=== PATIENT | female | born 1990 | race Two or more races ===

== ENCOUNTER 2018-11-14 20:59 | Emergency (ER) | payer SELFPAY ==
[2018-11-14] MEDS ORDERED: Ketorolac 30 MG/ML SDV IVPUSH ONE (21:20)
[2018-11-14] MEDS ORDERED: Sodium Chloride 0.9% 1,000 ML IV ONE (21:20)
--- NOTE | 2018-11-14 21:27 | EDM.PDOC ---
<Teddy Lauren - Last Filed: 11/14/18 23:14> ED HPI GENERAL MEDICAL PROBLEM - General Chief Complaint: Abdominal Pain Stated Complaint: LOWER BACK/KIDNEY PAIN Time Seen by Provider: 11/14/18 21:10 - Related Data Allergies Allergy/AdvReac Type Severity Reaction Status Date / Time No Known Allergies Allergy Verified 11/14/18 21:12 Home Meds: Home Meds . [No Known Home Meds] 11/14/18 [History] ED ROS GENERAL - Review of Systems Review Of Systems: ROS reveals no pertinent complaints other than HPI. ED EXAM, RENAL/ - Physical Exam Exam: See Below (See dictation) Course - Vital Signs Text/Narrative:: Patient's emergency course unremarkable CT of her abdomen and pelvis and other diagnostics were discussed with patient patient be discharged home with diagnosis of #1 back pain #2 medical screening exam Last Recorded V/S: Last Vital Signs Temp 97 F 11/14/18 23:26 Pulse 85 11/14/18 23:26 Resp 16 11/14/18 23:26 BP 117/73 11/14/18 23:26 Pulse Ox 99 11/14/18 23:26 - Orders/Labs/Meds Labs: Laboratory Tests 11/14/18 11/14/18 11/14/18 Range/Units 20:15 20:15 21:28 WBC 13.60 H (4.0-11.0) K/uL RBC 4.82 (4.30-5.90) M/uL Hgb 14.3 (12.0-16.0) g/dL Hct 41.6 (36.0-46.0) % MCV 86.3 (80.0-98.0) fL MCH 29.7 (27.0-32.0) pg MCHC 34.4 (31.0-37.0) g/dL RDW Std Deviation 41.6 (28.0-62.0) fl RDW Coeff of Leandro 13 (11.0-15.0) % Plt Count 282 (150-400) K/uL MPV 10.20 (7.40-12.00) fL Neut % (Auto) 64.1 (48.0-80.0) % Lymph % (Auto) 26.0 (16.0-40.0) % Mitchell % (Auto) 6.1 (0.0-15.0) % Eos % (Auto) 3.7 (0.0-7.0) % Baso % (Auto) 0.1 (0.0-1.5) % Neut # (Auto) 8.7 H (1.4-5.7) K/uL Lymph # (Auto) 3.5 H (0.6-2.4) K/uL Mitchell # (Auto) 0.8 (0.0-0.8) K/uL Eos # (Auto) 0.5 (0.0-0.7) K/uL Baso # (Auto) 0.0 (0.0-0.1) K/uL Nucleated RBC % 0.0 /100WBC Nucleated RBCs # 0 K/uL Sodium (136-145) mmol/L Potassium (3.5-5.1) mmol/L Chloride (98-107) mmol/L Carbon Dioxide (21.0-32.0) mmol/L BUN (7.0-18.0) mg/dL Creatinine (0.6-1.0) mg/dL Est Cr Clr Drug Dosing Estimated GFR (MDRD) ml/min Glucose (74-106) mg/dL Calcium (8.5-10.1) mg/dL Total Bilirubin (0.2-1.0) mg/dL AST (15-37) IU/L ALT (14-63) IU/L Alkaline Phosphatase (46-116) U/L Total Protein (6.4-8.2) g/dL Albumin (3.4-5.0) g/dL Globulin (2.6-4.0) g/dL Albumin/Globulin Ratio (0.9-1.6) Urine Color YELLOW Urine Appearance SLT CLOUDY Urine pH 5.5 (5.0-8.0) Ur Specific [place] <= 1.005 (1.001-1.035) Urine Protein NEGATIVE (NEGATIVE) mg/dL Urine Glucose (UA) NEGATIVE (NEGATIVE) mg/dL Urine Ketones NEGATIVE (NEGATIVE) mg/dL Urine Occult Blood NEGATIVE (NEGATIVE) Urine Nitrite NEGATIVE (NEGATIVE) Urine Bilirubin NEGATIVE (NEGATIVE) Urine Urobilinogen 0.2 (<2.0) EU/dL Ur Leukocyte Esterase TRACE H (NEGATIVE) Urine RBC 0-1 (0-2/HPF) Urine WBC 2-5 (0-5/HPF) Ur Epithelial Cells FEW (NONE-FEW) Urine Bacteria RARE (NEGATIVE) Urine HCG, Qual NEGATIVE (NEGATIVE) 11/14/18 Range/Units 21:28 WBC (4.0-11.0) K/uL RBC (4.30-5.90) M/uL Hgb (12.0-16.0) g/dL Hct (36.0-46.0) % MCV (80.0-98.0) fL MCH (27.0-32.0) pg MCHC (31.0-37.0) g/dL RDW Std Deviation (28.0-62.0) fl RDW Coeff of Leandro (11.0-15.0) % Plt Count (150-400) K/uL MPV (7.40-12.00) fL Neut % (Auto) (48.0-80.0) % Lymph % (Auto) (16.0-40.0) % Mitchell % (Auto) (0.0-15.0) % Eos % (Auto) (0.0-7.0) % Baso % (Auto) (0.0-1.5) % Neut # (Auto) (1.4-5.7) K/uL Lymph # (Auto) (0.6-2.4) K/uL Mitchell # (Auto) (0.0-0.8) K/uL Eos # (Auto) (0.0-0.7) K/uL Baso # (Auto) (0.0-0.1) K/uL Nucleated RBC % /100WBC Nucleated RBCs # K/uL Sodium 140 (136-145) mmol/L Potassium 3.8 (3.5-5.1) mmol/L Chloride 104 (98-107) mmol/L Carbon Dioxide 25.9 (21.0-32.0) mmol/L BUN 11 (7.0-18.0) mg/dL Creatinine 0.8 (0.6-1.0) mg/dL Est Cr Clr Drug Dosing TNP Estimated GFR (MDRD) > 60.0 ml/min Glucose 90 (74-106) mg/dL Calcium 9.1 (8.5-10.1) mg/dL Total Bilirubin 0.3 (0.2-1.0) mg/dL AST 12 L (15-37) IU/L ALT 21 (14-63) IU/L Alkaline Phosphatase 61 (46-116) U/L Total Protein 7.3 (6.4-8.2) g/dL Albumin 3.5 (3.4-5.0) g/dL Globulin 3.8 (2.6-4.0) g/dL Albumin/Globulin Ratio 0.9 (0.9-1.6) Urine Color Urine Appearance Urine pH (5.0-8.0) Ur Specific [place] (1.001-1.035) Urine Protein (NEGATIVE) mg/dL Urine Glucose (UA) (NEGATIVE) mg/dL Urine Ketones (NEGATIVE) mg/dL Urine Occult Blood (NEGATIVE) Urine Nitrite (NEGATIVE) Urine Bilirubin (NEGATIVE) Urine Urobilinogen (<2.0) EU/dL Ur Leukocyte Esterase (NEGATIVE) Urine RBC (0-2/HPF) Urine WBC (0-5/HPF) Ur Epithelial Cells (NONE-FEW) Urine Bacteria (NEGATIVE) Urine HCG, Qual (NEGATIVE) Meds: Medications Discontinued Medications Generic Name Dose Route Start Last Admin Trade Name Freq PRN Reason Stop Dose Admin Sodium Chloride 1,000 mls @ 999 mls/hr 11/14/18 21:20 11/14/18 21:30 Normal Saline IV 11/14/18 22:20 999 mls/hr STAT ONE Administration Ketorolac Tromethamine 30 mg 11/14/18 21:20 11/14/18 21:30 Toradol IVPUSH 11/14/18 21:21 30 mg ONETIME ONE Administration Departure - Departure Time of Disposition: 23:15 Disposition: Home, Self-Care 01 Condition: Good Clinical Impression: Back pain, Encounter for medical screening examination - Discharge Information Instructions: Acute Back Pain, Adult Referrals: PCP,None [Primary Care Provider] - Forms: ED Department Discharge Additional Instructions: The following information is given to patients seen in the emergency department who are being discharged to home. This information is to outline your options for follow-up care. We provide all patients seen in our emergency department with a follow-up referral. The need for follow-up, as well as the timing and circumstances, are variable depending upon the specifics of your emergency department visit. If you don't have a primary care physician on staff, we will provide you with a referral. We always advise you to contact your personal physician following an emergency department visit to inform them of the circumstance of the visit and for follow-up with them and/or the need for any referrals to a consulting specialist. The emergency department will also refer you to a specialist when appropriate. This referral assures that you have the opportunity for followup care with a specialist. All of these measure are taken in an effort to provide you with optimal care, which includes your followup. Under all circumstances we always encourage you to contact your private physician who remains a resource for coordinating your care. When calling for followup care, please make the office aware that this follow-up is from your recent emergency room visit. If for any reason you are refused follow-up, please contact the [facility] emergency department at and asked to speak to the emergency department charge nurse. Motrin/Tylenol as directed follow-up primary medical doctor as needed as discussed return as needed as discussed <Jayleen Baca E - Last Filed: 11/18/18 09:00> ED HPI GENERAL MEDICAL PROBLEM - General Source of Information: Reports: Patient History Limitations: Reports: No Limitations - History of Present Illness INITIAL COMMENTS - FREE TEXT/NARRATIVE: HISTORY AND PHYSICAL: History of present illness: Patient is a 28-year-old female who presents to the emergency room with complaints of right flank pain. Right flank pain radiates to the right mid abdomen. Patient denies any fever, chills, headache, change in vision, syncope or near syncope. Denies any chest pain, back pain, shortness of breath or cough. Denies any nausea, vomiting, diarrhea, constipation or dysuria. Has not noted any blood in urine or stool. She states that there is a chance of . Patient has been eating and drinking appropriately. Review of systems: As per history of present illness and below otherwise all systems reviewed and negative. Past medical history: As per history of present illness and as reviewed below otherwise noncontributory. Surgical history: As per history of present illness and as reviewed below otherwise noncontributory. Social history: See social history for further information Family history: As per history of present illness and as reviewed below otherwise noncontributory. Physical exam: General: Well-developed and well-nourished 28-year-old female. Alert and oriented. Nontoxic appearing and in no acute distress. HEENT: Atraumatic, normocephalic, pupils equal and reactive bilaterally, negative for conjunctival pallor or scleral icterus, mucous membranes moist, trachea midline. No drooling or trismus noted. No meningeal signs. No hot potato voice noted. Lungs: Clear to auscultation, breath sounds equal bilaterally, chest nontender. Heart: S1S2, regular rate and rhythm without overt murmur Abdomen: Soft, nondistended, Mild right mid/abd tenderness. Negative for masses. Right sided costovertebral tenderness. Pelvis: Stable nontender. Skin: Intact, warm, dry. No lesions or rashes noted. Extremities: Atraumatic, moves all extremities per self without difficulty or deficits, negative for cords or calf pain. Neurovascular unremarkable. Neuro: Awake, alert, oriented. Cranial nerves II through XII unremarkable. Cerebellum unremarkable. Motor and sensory unremarkable throughout. Exam nonfocal. Notes: Dr Lauren to follow patient's labs and CT report. Diagnostics: CBC, CMP, UA, CT abdomen and pelvis Therapeutics: IV fluid, Zofran Impression: Flank Pain, Right Definitive disposition and diagnosis as appropriate pending reevaluation and review of above. 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: Musculoskeletal History: Reports: None Neurological History: Reports: None Psychiatric History: Reports: None Endocrine/Metabolic History: Reports: None Hematologic History: Reports: None Immunologic History: Reports: None Oncologic (Cancer) History: Reports: None Dermatologic History: Reports: None - Infectious Disease History Infectious Disease History: Reports: None - Past Surgical History Head Surgeries/Procedures: Reports: None Musculoskeletal Surgical History: Reports: None Social & Family History - Family History Family Medical History: Noncontributory - Tobacco Use Smoking Status *Q: Never Smoker - Caffeine Use Caffeine Use: Reports: Coffee - Recreational Drug Use Recreational Drug Use: No Course - Orders/Labs/Meds Labs: Laboratory Tests 11/14/18 11/14/18 11/14/18 Range/Units 20:15 20:15 21:28 WBC 13.60 H (4.0-11.0) K/uL RBC 4.82 (4.30-5.90) M/uL Hgb 14.3 (12.0-16.0) g/dL Hct 41.6 (36.0-46.0) % MCV 86.3 (80.0-98.0) fL MCH 29.7 (27.0-32.0) pg MCHC 34.4 (31.0-37.0) g/dL RDW Std Deviation 41.6 (28.0-62.0) fl RDW Coeff of Leandro 13 (11.0-15.0) % Plt Count 282 (150-400) K/uL MPV 10.20 (7.40-12.00) fL Neut % (Auto) 64.1 (48.0-80.0) % Lymph % (Auto) 26.0 (16.0-40.0) % Mitchell % (Auto) 6.1 (0.0-15.0) % Eos % (Auto) 3.7 (0.0-7.0) % Baso % (Auto) 0.1 (0.0-1.5) % Neut # (Auto) 8.7 H (1.4-5.7) K/uL Lymph # (Auto) 3.5 H (0.6-2.4) K/uL Mitchell # (Auto) 0.8 (0.0-0.8) K/uL Eos # (Auto) 0.5 (0.0-0.7) K/uL Baso # (Auto) 0.0 (0.0-0.1) K/uL Nucleated RBC % 0.0 /100WBC Nucleated RBCs # 0 K/uL Sodium (136-145) mmol/L Potassium (3.5-5.1) mmol/L Chloride (98-107) mmol/L Carbon Dioxide (21.0-32.0) mmol/L BUN (7.0-18.0) mg/dL Creatinine (0.6-1.0) mg/dL Est Cr Clr Drug Dosing Estimated GFR (MDRD) ml/min Glucose (74-106) mg/dL Calcium (8.5-10.1) mg/dL Total Bilirubin (0.2-1.0) mg/dL AST (15-37) IU/L ALT (14-63) IU/L Alkaline Phosphatase (46-116) U/L Total Protein (6.4-8.2) g/dL Albumin (3.4-5.0) g/dL Globulin (2.6-4.0) g/dL Albumin/Globulin Ratio (0.9-1.6) Urine Color YELLOW Urine Appearance SLT CLOUDY Urine pH 5.5 (5.0-8.0) Ur Specific [place] <= 1.005 (1.001-1.035) Urine Protein NEGATIVE (NEGATIVE) mg/dL Urine Glucose (UA) NEGATIVE (NEGATIVE) mg/dL Urine Ketones NEGATIVE (NEGATIVE) mg/dL Urine Occult Blood NEGATIVE (NEGATIVE) Urine Nitrite NEGATIVE (NEGATIVE) Urine Bilirubin NEGATIVE (NEGATIVE) Urine Urobilinogen 0.2 (<2.0) EU/dL Ur Leukocyte Esterase TRACE H (NEGATIVE) Urine RBC 0-1 (0-2/HPF) Urine WBC 2-5 (0-5/HPF) Ur Epithelial Cells FEW (NONE-FEW) Urine Bacteria RARE (NEGATIVE) Urine HCG, Qual NEGATIVE (NEGATIVE) 11/14/18 Range/Units 21:28 WBC (4.0-11.0) K/uL RBC (4.30-5.90) M/uL Hgb (12.0-16.0) g/dL Hct (36.0-46.0) % MCV (80.0-98.0) fL MCH (27.0-32.0) pg MCHC (31.0-37.0) g/dL RDW Std Deviation (28.0-62.0) fl RDW Coeff of Leandro (11.0-15.0) % Plt Count (150-400) K/uL MPV (7.40-12.00) fL Neut % (Auto) (48.0-80.0) % Lymph % (Auto) (16.0-40.0) % Mitchell % (Auto) (0.0-15.0) % Eos % (Auto) (0.0-7.0) % Baso % (Auto) (0.0-1.5) % Neut # (Auto) (1.4-5.7) K/uL Lymph # (Auto) (0.6-2.4) K/uL Mitchell # (Auto) (0.0-0.8) K/uL Eos # (Auto) (0.0-0.7) K/uL Baso # (Auto) (0.0-0.1) K/uL Nucleated RBC % /100WBC Nucleated RBCs # K/uL Sodium 140 (136-145) mmol/L Potassium 3.8 (3.5-5.1) mmol/L Chloride 104 (98-107) mmol/L Carbon Dioxide 25.9 (21.0-32.0) mmol/L BUN 11 (7.0-18.0) mg/dL Creatinine 0.8 (0.6-1.0) mg/dL Est Cr Clr Drug Dosing TNP Estimated GFR (MDRD) > 60.0 ml/min Glucose 90 (74-106) mg/dL Calcium 9.1 (8.5-10.1) mg/dL Total Bilirubin 0.3 (0.2-1.0) mg/dL AST 12 L (15-37) IU/L ALT 21 (14-63) IU/L Alkaline Phosphatase 61 (46-116) U/L Total Protein 7.3 (6.4-8.2) g/dL Albumin 3.5 (3.4-5.0) g/dL Globulin 3.8 (2.6-4.0) g/dL Albumin/Globulin Ratio 0.9 (0.9-1.6) Urine Color Urine Appearance Urine pH (5.0-8.0) Ur Specific [place] (1.001-1.035) Urine Protein (NEGATIVE) mg/dL Urine Glucose (UA) (NEGATIVE) mg/dL Urine Ketones (NEGATIVE) mg/dL Urine Occult Blood (NEGATIVE) Urine Nitrite (NEGATIVE) Urine Bilirubin (NEGATIVE) Urine Urobilinogen (<2.0) EU/dL Ur Leukocyte Esterase (NEGATIVE) Urine RBC (0-2/HPF) Urine WBC (0-5/HPF) Ur Epithelial Cells (NONE-FEW) Urine Bacteria (NEGATIVE) Urine HCG, Qual (NEGATIVE)
[2018-11-14 21:57] LABS: CHLORIDE,CL 104 mmol/L (98-107); SODIUM,NA 140 mmol/L (136-145)
--- NOTE | 2018-11-14 22:58 | CT ---
INDICATION: Bilateral lower quadrant and back pain. TECHNIQUE: CT abdomen and pelvis without contrast. COMPARISON: None. FINDINGS: Lower chest: Unremarkable. Liver: Normal in size and attenuation. No masses. Gallbladder and bile ducts: No stones or inflammation. No biliary dilatation. Pancreas: Unremarkable. No mass or inflammation. Spleen: Normal in size. No masses. Adrenal glands: Normal in size. No nodules. Kidneys: Normal in size. No masses, stones, or hydronephrosis. GI tract: Unremarkable. Normal in caliber. No sign of mass or inflammation. Normal appendix. Vasculature: Unremarkable. Lymph nodes: No lymphadenopathy. Abdominal wall/Omentum/Peritoneum: Unremarkable. No sign of mass or infiltration. No free air or significant free fluid. Pelvis: Unremarkable. No pelvic masses. Bones: Unremarkable for age. IMPRESSION: Unremarkable CT of the abdomen and pelvis. No findings to explain lower quadrant or back pain. Please note that all CT scans at this facility use dose modulation, iterative reconstruction, and/or weight-based dosing when appropriate to reduce radiation dose to as low as reasonably achievable. Dictated by David Parekh MD @ Nov 14 2018 10:50PM Signed by Dr. David Parekh @ Nov 14 2018 10:56PM
== END 2018-11-14 23:26 | disposition home or self-care (01) ==
LOC: MW.ED 20:59
DX: R10.9 Unspecified abdominal pain (principal); M54.5 Low back pain
CPT/HCPCS: 36415; 74150; 80053; 81001; 81025; 85025; 87086; 96361; 96374; 99284; J1885; J7040

== ENCOUNTER 2019-03-13 16:41 | Emergency (ER) | payer SELFPAY ==
[2019-03-13 18:33] LABS: BLOOD UREA NITROGEN,BUN 10 mg/dL (7.0-18.0); CARBON DIOXIDE,CO2 25.7 mmol/L (21.0-32.0); CHLORIDE,CL 100 mmol/L (98-107); GLUCOSE RANDOM 85 mg/dL (74-106); POTASSIUM,K 3.8 mmol/L (3.5-5.1); SODIUM,NA 136 mmol/L (136-145)
--- NOTE | 2019-03-13 19:16 | EDM.PDOC ---
ED HPI GENERAL MEDICAL PROBLEM - General Chief Complaint: BATTER OUT Problem Stated Complaint: PREG AND BLEEDING Time Seen by Provider: 03/13/19 19:16 - History of Present Illness INITIAL COMMENTS - FREE TEXT/NARRATIVE: HPI 28-year-old female who is reportedly 8 weeks presents for evaluation of scant bright red vaginal bleeding that occurred this morning, currently asymptomatic. No pain. Patient denies a history of multiparous gestations or IVF. Patient has an BATTER OUT with prior care, unsure name of OB/ [employer]. M/S/F/SocHx notable for: please see HPI; remainder reviewed with patient and in chart. ROS: Negative constitutional, eye, cardiovascular, pulmonary, GI, , MSK, skin , neurologic, psychiatric, endocrine unless noted in the HPI. Exam HR 85, RR 16, BP 137/89, T 36.4C, SaO2 90% on room air. Gen: pleasant, nontoxic-appearing, resting comfortably. HEENT: NC, AT, PEERL, EOMI. Resp: Clear to auscultation bilaterally, normal work of breathing, no accessory muscle usage. Card: Regular rate and rhythm with no murmurs, rubs, or gallops, extremities warm and well perfused. GI: Non-tender to palpation, no rebound tenderness or guarding, non-distended : no suprapubic tenderness to palpation. MSK: No visible deformities, strength and tone without visually appreciable deficit. Skin: Normal color with no visible lesions. Neuro: alert and oriented 3, no facial asymmetry, vision and hearing WNL. Psych: Mood and affect appropriate. Labs / Imaging (pertinent): WBC 11.66, HB 14.4, sodium 136, potassium 3.8, AST 15, ALT 22, alkaline phosphatase 62, hCG 689,975, A +. FAST Exam Indication: Evaluate for hemoperitoneum. Exam type: limited cardiac and limited abdomen; initial. Views obtained: Right upper quadrant, left upper quadrant, pelvis, and cardiac Abdomen Findings: Limited abdomen ultrasound without significant free intraperitoneal fluid found. Cardiac Findings: Limited cardiac ultrasound without pericardial effusion. Focused Ultrasound Indication: (Evaluation of with abdominal pain vs Evaluation of with bleeding.) Exam type (limited): Transabdominal, initial Views obtained: Transabdominal sagittal and transabdominal transverse. Findings: intrauterine with a FHR ~180 bpm. ] Interpretation: intrauterine with a FHR of ~180 bpm. MDM Previous chart, nursing note, and vitals reviewed. A: 28-year-old female who is reportedly 8 weeks presents for evaluation of scant bright red vaginal bleeding that occurred this morning, currently asymptomatic. DDx: Ectopic , threatened miscarriage, inevitable miscarriage, complete miscarriage, incomplete miscarriage, missed , vaginal/cervical lesion (including wart, trauma, tumor, ectropion, polyp). Evaluation: Exam without abdominal pain. Hb 14.4, Rh+, Rhogram not indicated (Rh +), BhCG 689,975. Ultrasound with intrauterine and cardiac activity. ED Course: Hemodynamically stable on arrival, patient remained stable throughout evaluation. Disposition: discharge with BATTER OUT follow-up recommended. Impression: vaginal bleeding. (please reference below for remainder of encounter information) Lower Abdomen Pain Score (Numeric/FACES): 5 - Related Data Allergies Allergy/AdvReac Type Severity Reaction Status Date / Time No Known Allergies Allergy Verified 03/13/19 17:24 Home Meds: Home Meds . [No Known Home Meds] 11/14/18 [History] Past Medical History HEENT History: Reports: None Cardiovascular History: Reports: None Respiratory History: Reports: None Gastrointestinal History: Reports: None Genitourinary History: Reports: None BATTER OUT History: Reports: Musculoskeletal History: Reports: None Neurological History: Reports: None Psychiatric History: Reports: None Endocrine/Metabolic History: Reports: None Insulin Pump Model and Lotteries Agent: N/A Hematologic History: Reports: None Immunologic History: Reports: None Oncologic (Cancer) History: Reports: None Dermatologic History: Reports: None - Infectious Disease History Infectious Disease History: Reports: None - Past Surgical History Head Surgeries/Procedures: Reports: None Musculoskeletal Surgical History: Reports: None Social & Family History - Family History Family Medical History: Noncontributory - Tobacco Use Smoking Status *Q: Never Smoker Second Hand Smoke Exposure: No - Caffeine Use Caffeine Use: Reports: None - Recreational Drug Use Recreational Drug Use: No ED ROS GENERAL - Review of Systems Review Of Systems: See Below ED EXAM, GENERAL - Physical Exam Exam: See Below Course - Vital Signs Last Recorded V/S: Last Vital Signs Temp 36.4 C 03/13/19 17:18 Pulse 85 03/13/19 17:18 Resp 16 03/13/19 17:18 BP 137/89 03/13/19 17:18 Pulse Ox 98 03/13/19 17:18 - Orders/Labs/Meds Orders: Active Orders 24 hr Category Date Time Status Pelvic Exam, Set Up [RC] ASDIRECTED Care 03/13/19 17:33 Active Labs: Laboratory Tests 03/13/19 03/13/19 03/13/19 Range/Units 17:45 17:45 17:45 WBC 11.66 H (4.0-11.0) K/uL RBC 4.88 (4.30-5.90) M/uL Hgb 14.4 (12.0-16.0) g/dL Hct 41.6 (36.0-46.0) % MCV 85.2 (80.0-98.0) fL MCH 29.5 (27.0-32.0) pg MCHC 34.6 (31.0-37.0) g/dL RDW Std Deviation 40.1 (28.0-62.0) fl RDW Coeff of Leandro 13 (11.0-15.0) % Plt Count 277 (150-400) K/uL MPV 10.20 (7.40-12.00) fL Neut % (Auto) 71.3 (48.0-80.0) % Lymph % (Auto) 22.6 (16.0-40.0) % Crook % (Auto) 4.5 (0.0-15.0) % Eos % (Auto) 1.4 (0.0-7.0) % Baso % (Auto) 0.2 (0.0-1.5) % Neut # (Auto) 8.3 H (1.4-5.7) K/uL Lymph # (Auto) 2.6 H (0.6-2.4) K/uL Crook # (Auto) 0.5 (0.0-0.8) K/uL Eos # (Auto) 0.2 (0.0-0.7) K/uL Baso # (Auto) 0.0 (0.0-0.1) K/uL Nucleated RBC % 0.0 /100WBC Nucleated RBCs # 0 K/uL Sodium 136 (136-145) mmol/L Potassium 3.8 (3.5-5.1) mmol/L Chloride 100 (98-107) mmol/L Carbon Dioxide 25.7 (21.0-32.0) mmol/L BUN 10 (7.0-18.0) mg/dL Creatinine 0.6 (0.6-1.0) mg/dL Est Cr Clr Drug Dosing 131.85 mL/min Estimated GFR (MDRD) > 60.0 ml/min Glucose 85 (74-106) mg/dL Calcium 9.3 (8.5-10.1) mg/dL Total Bilirubin 0.5 (0.2-1.0) mg/dL AST 15 (15-37) IU/L ALT 22 (14-63) IU/L Alkaline Phosphatase 62 (46-116) U/L Total Protein 8.2 (6.4-8.2) g/dL Albumin 3.7 (3.4-5.0) g/dL Globulin 4.5 H (2.6-4.0) g/dL Albumin/Globulin Ratio 0.8 L (0.9-1.6) HCG, Quant 14041.0 mIU/mL Blood Type A POSITIVE Departure - Departure Time of Disposition: 19:14 Disposition: Home, Self-Care 01 Clinical Impression: Vaginal bleeding - Discharge Information Referrals: PCP,Unknown [Primary Care Provider] - Additional Instructions: You were in seen in the Emergency Department for evaluation of vaginal bleeding. Please read and follow all of the instructions below. Please follow up with your BATTER OUT or family medicine physician within 36 to 48 hours for repeat evaluation. During your emergency department evaluation your beta hCG was 689,975. Please return immediately if you have any of the following: * Worsening bleeding. * Lightheadedness, shortness of breath, dizziness, chest pain. * Worsening pain. * If you are otherwise concerned about your health. When calling for follow-up care, please make the office aware that this follow- up is from your recent emergency room visit. If for any reason you are refused follow-up, please contact the Emergency Department at and asked to speak to the emergency department charge nurse. Your care today was limited to identifying and treating emergent medical problems only. Many people have subtle differences in their test results that require follow up with their outpatient physician(s) to correctly determine if this represents a normal variation or concerning abnormality with respect to your specific health. The care given to you today was limited to identifying and treating emergent medical problems - you need to request a copy of all of your medical records from today's visit and follow up with your outpatient physician(s) to review both today's visit and your overall health. If you have any new symptoms or if you are at all concerned about your health please return immediately to the emergency department. Prescriptions: If you are uninsured or have financial difficulties with filling your prescription(s), you may consider using a free pharmacy discount service such as [employer] ([employer]) or [employer] ([employer]). These services allow you to search for a medication on your phone (or computer) and obtain a coupon that usually has a significant discount from the list palacios at a pharmacy. Your physician as well as [facility] does not have a financial relationship with either of these services. You may also wish to speak with your physician to determine if lower cost prescriptions are possible. Obtaining primary care: 1. [facility] provides pediatrics (children), family medicine (children, adults, and some obstetrical care), and internal medicine (adults). Further specialty care is also available. Same day appointments are available. They may be contacted at [phone] and are open Friday through Friday 8 AM to 5 PM. The [facility] are located at [facility], [address] [place] [address]. 2. [facility] offers family medicine, internal medicine, womens health, and further specialty care. [facility] may be contacted at [phone]. [facility] is located at [address] [place], [address]. 3. If you have health insurance, please also contact your insurer for a list of accepting providers under your policy, you may contact these providers for further health care. Occupational health: Work related injuries may consider following up with [facility], . Occupational health services are located at [address] [place] [address] and are open Friday through Friday from 7: 30 am to 5:00 pm. Obstetrical and Gynecological Care: [facility], , Friday through Friday 8 AM to 5 PM. [address] [place] [address]. Eyecare: If you have an eye injury you should follow up with your stenographer secretary or with [facility], at [phone] or [phone] , they are located at [address] [place] [address]. Fue visto en el Departamento de Emergencias del [facility] para la evaluacin del sangrado vaginal. Por favor, nguyễn y siga todas las instrucciones a continuacin. Por favor, hemalatha un seguimiento con hogan obstetra/ginecofado o mdico de medicina familiar dentro de 36 a 48 horas para repetir laevaluacin. Shayne la evaluacin del departamento de emergencias, hogan hCG beta fue de 689, 975. Por favor, regrese inmediatamente si tiene alguno de los siguientes: * Empeoramiento del sangrado. * Aturdimiento, dificultad para respirar, mareos, dolor en el pecho. * Empeoramiento del dolor. * Si de lo contrario le preocupa hogan melissa. Cuando llame para atencin de seguimiento, por favor hemalatha que la oficina sea consciente de que anirudh seguimiento es de hogan reciente visita a la tennille de emergencias. Si por alguna razn se le rechaza el seguimiento, comunquese con el Departamento de Emergencias del [facility] y se le pida que hable con la enfermera de cargo del departamento de emergencias. Hogan atencin de remedios se limit a identificar y tratar solo problemas mdicos emergentes. Muchas personas tienen diferencias sutiles en los resultados de angel pruebas que requieren seguimiento con hogan(s) mdico(s) ambulatorio(s) para determinar correctamente si esto representa lenin variacin normal o con respecto a la anormalidad con respecto a hogan melissa especfica. La atencin que se le tyler stepheny se limit a identificar y tratar problemas mdicos emergentes - usted necesita solicitar lenin copia de todos angel registros mdicos de la visita de remedios y hacer un seguimiento con hogan(s) mdico(s) ambulatorio(s) para revisar tantola visita de remedios annamarie hogan saludgeneral. Si tiene sntomas nuevos o si est preocupado por hogan melissa, regrese inmediatamente al departamento de emergencias. Prescripciones: Si no est asegurado o tiene dificultades financieras para llenar hogan(s) receta(s ), puede considerar el uso de un servicio gratuito de descuento de farmacia annamarie GoodRx ([email or web address]) o [facility] ([email or web address]). Estos servicios le permiten buscar un medicamento en hogan telfono (o computadora) y obtener un cupn que por lo general tiene un descuento significativo del precio de lista en lenin farmacia. Hogan mdico, as annamarie [facility] melissa no tiene lenin relacin financiera con cualquiera de estos servicios. Camron puede hablar con hogan mdico para determinar si las recetas de heriberto costo son posibles. Obtencin de atencin primaria: 1. [facility] proporciona pediatra (nios), medicina familiar (nios, adultos y algunos cuidados obsttricos) y medicina interna (adultos). Camron se ofrecen ms atencin especializada. Las citas para el mismo da estn disponibles. Pueden ser contactados al [phone] y estn abiertos de lunes a viernes de 8 AM a 5 PM. Las clnicas [facility] se encuentran en [facility], [address] [place] [address]. 2. [facility] ofrece medicina familiar, medicina interna, melissa de la diego y atencin especializada adicional. La clnica comunitaria de [place] puede ser contactada al [phone]. [facility] est ubicado en [address] [place], [address]. 3. Si tiene seguro mdico, camron pngase en contacto con hogan aseguradora para obtener lenin lista de proveedores aceptados bajo hogan pliza, puede comunicarse con estos proveedores para obtener ms atencin mdica. Melissa ocupacional: Las lesiones relacionadas con el trabajo pueden considerar el seguimiento con [facility], . Los servicios de melissa ocupacional estn ubicados a [address] [place] [address] y estn abiertos de lunes a viernes de 7:30 am a 5:00 pm. Atencin obsttrica y ginecolgica: [facility], , de lunes a viernes de 8 a. m. a 5 p. m. [address] [address]. Cuidado de los ojos: Si usted tiene lenin lesin en el nava debe hacer un seguimiento con hogan oftalmlogo o con [facility], al [phone] o [phone], se encuentran en [address] [place] [address]. Sepsis Event Note - Evaluation Sepsis Screening Result: No Definite Risk - Focused Exam Vital Signs: Vital Signs Temp Pulse Resp BP Pulse Ox 03/13/19 17:18 36.4 C 85 16 137/89 98 Date Exam was Performed: 03/13/19 Time Exam was Performed: 19:13 - My Orders Last 24 Hours: My Active Orders 03/13/19 17:33 Pelvic Exam, Set Up [RC] ASDIRECTED - Assessment/Plan Last 24 Hours: My Active Orders 03/13/19 17:33 Pelvic Exam, Set Up [RC] ASDIRECTED
== END 2019-03-13 19:25 | disposition home or self-care (01) ==
LOC: MW.ED 16:41
DX: O20.9 Hemorrhage in early pregnancy, unspecified (principal); Z3A.08 8 weeks gestation of pregnancy
CPT/HCPCS: 36415; 80053; 84702; 85025; 86900; 86901; 99283; 99284